=== PATIENT | male | born 1980 | race Caucasian/White ===

== ENCOUNTER 2016-03-19 03:00 | Emergency (ER) | payer OTHER, BC ==
[~2016-03-19] VITALS: Ht 175.3 cm; Wt 102.0 kg
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
[2016-03-19] MEDS ORDERED: FENTANYL CITRATE INJ 50 MCG/1 ML 2 ML VIAL ONE (03:12)
[2016-03-19 03:14] VITALS: O2SAT 95; Ht 175.3 cm; Wt 102.0 kg
[2016-03-19 03:22] LABS: ISTAT CREATININE 1.4 mg/dl (0.6-1.3); ISTAT HEMOGLOBIN 16.3 g/dl (14.0-18.0); ISTAT IONIZED CALCIUM 1.22 mmol/l (1.12-1.32)
[2016-03-19] MEDS ORDERED: MULT-808 PO (03:24)
[2016-03-19 03:53] VITALS: BP 140/106; PULSE 93; O2SAT 98
[2016-03-19] MEDS ORDERED: OPTIRAY 320 IV PRN (04:00)
[2016-03-19] MEDS ORDERED: NURSING VERBAL MED ORDER ONE (04:15)
[2016-03-19] MEDS ORDERED: SODIUM CHLORIDE 0.9% 500ML 500 ML IV STA ×2 (04:38)
[2016-03-19] MEDS ORDERED: FENTANYL CITRATE INJ 50 MCG/1 ML 2 ML VIAL IV STA (04:39)
[2016-03-19] MEDS ORDERED: SODIUM CHLORIDE 0.9% 1000ML 1,000 ML IV SCH (04:45)
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
== END 2016-03-19 03:45 | disposition short-term general hospital (02) ==
LOC: EDBD 03:00 → C.ED 03:03
DX: S12.101A Unspecified nondisplaced fracture of second cervical vertebra, initial encounter for closed fracture (principal); S27.0XXA Traumatic pneumothorax, initial encounter; S39.91XA Unspecified injury of abdomen, initial encounter; F10.129 Alcohol abuse with intoxication, unspecified; V48.0XXA Car driver injured in noncollision transport accident in nontraffic accident, initial encounter